=== PATIENT | male | born 1975 | race Caucasian/White ===

== ENCOUNTER 2018-04-09 19:35 | Emergency (ER) | payer BC ==
[~2018-04-09] VITALS: Ht 165.1 cm; Wt 83.9 kg
[2018-04-09] MEDS ORDERED: SUDAFED 12-HOU120 MG PO (19:43)
[2018-04-09] MEDS ORDERED: ZYRTEC10 MG PO (19:43)
[2018-04-09] MEDS ORDERED: PERCOCET 5-3251 EACH PO (21:44)
[2018-04-09] MEDS ORDERED: ZOFRAN ODT4 MG PO (21:44)
[2018-04-09] MEDS ORDERED: FLOMAX0.4 MG PO (21:44)
== END 2018-04-09 22:19 | disposition home or self-care (01) ==
LOC: ED 19:35
DX: N13.2 Hydronephrosis with renal and ureteral calculous obstruction (principal)
CPT/HCPCS: 74177; 80053; 81001; 83690; 85025; 96361; 96374; 96375; 96376; 99284; J1885; J2270; J2405; J7030; Q9967

== ENCOUNTER 2019-05-22 19:53 | Emergency (ER) | payer BC ==
[~2019-05-22] VITALS: Ht 165.1 cm; Wt 79.4 kg
[~2019-05-22 19:53] MED LIST: FLOMAX0.4 MG PO; PERCOCET 5-3251 EACH PO; SUDAFED 12-HOU120 MG PO; ZOFRAN ODT4 MG PO; ZYRTEC10 MG PO
[2019-05-22] MEDS ORDERED: ALLEGRA ALLERGY60 MG PO (20:30)
== END 2019-05-23 01:36 | disposition short-term general hospital (02) ==
LOC: ED 19:53
DX: S42.201A Unspecified fracture of upper end of right humerus, initial encounter for closed fracture (principal); Y04.0XXA Assault by unarmed brawl or fight, initial encounter
CPT/HCPCS: 71101; 73030; 96361; 96374; 96375; 96376; 99284-25; J1170; J2405; J7030

== ENCOUNTER 2021-04-02 12:10 | Inpatient (IN) | payer OTHER ==
[~2021-04-02] VITALS: Ht 165.1 cm; Wt 68.2 kg
[~2021-04-02 12:10] MED LIST changes: +ALLEGRA ALLERGY60 MG PO
--- NOTE | 2021-04-02 16:27 | EKG ---
[facility] [address] [facility] [place], [place] [address] Signed Sinus tachycardia Otherwise normal ECG No previous ECGs available Confirmed by DAMIAN AMBRIZ MD ([id number]) on 04/02/2021 4:27:16 PM Electronically Signed By: DAMIAN AMBRIZ MD 04/02/21 1627 PATIENT NAME: CARLOS MCALLISTER Electrocardiogram DATE OF : 77 PHYSICIAN: DAMIAN AMBRIZ MD REPORT #: [id number] REPORT IS CONFIDENTIAL AND NOT TO BE RELEASED WITHOUT AUTHORIZATION
--- NOTE | 2021-04-02 18:56 | NUR ---
PT ARRIVED AT 1755 AND WAS BROUGHT VIA WHEELCHAIR BY JAKI NORTON. PT ALERT AND ORIENTED, BELONGINGS BROUGHT BY WHO IS AT THE PT'S SIDE. PT ABLE TO STAND UP AND GET INTO BED WITHOUT DIFFICULTY. VITALS TAKEN AT THIS TIME, PT ASSESSED. SCHEDULED MEDICATIONS ADMINISTERED AT THIS TIME (SEE SEP). PT REPORTS NO PAIN AT THIS TIME AND DENIES SOB WHEN ASKED. PT NOW RESTING IN THE BED, WATER PROVIDED, IVF INFUSING ORDERED. PT REPORTS NO FURTHER NEEDS WHEN ASKED, WILL CONTINUE PLAN OF CARE. CALL LIGHT IN REACH, BED IN LOWEST POSITION, IN ROOM AT THE BEDSIDE.
--- NOTE | 2021-04-02 19:27 | NUR ---
Report recieved, care of patient assumed at this time.
--- NOTE | 2021-04-02 19:51 | NUR ---
in room for assessment and medication administration. pt ambulated to bathroom with on eperson assist required. heart rate up to 110 wih exertion. Discussed ETOH withdrawal signs and symptoms with pt. all questions answered. call light within reach. Will continue to monitor.
--- NOTE | 2021-04-02 22:03 | NUR ---
responded to pt call light. pt pulled out iv while sleeping. states he woke up unaware of his surrounding. New IV inserted. Well tolerated by PT. . pt remains steady on his feet and states he is having generalized pain.
--- NOTE | 2021-04-02 22:47 | NUR ---
pt given prn oral valium (see emar). blood drawn and sent to lab.
--- NOTE | 2021-04-03 00:15 | NUR ---
new order for IV fluids recieved and now infusing. PT resting with eyes closed, breathing even and unlabored. spo2= 94% on room air. RR= 20. Assessment completed. call light within reach and bed alarm in place. No further needs at this time.
--- NOTE | 2021-04-03 04:12 | NUR ---
PT RESTING. BREATHING EVEN AND UNLABORED. CALL LIGHT WITHIN REACH. BED ALARM IN PLACE. NO ASSESSED NEEDS AT THIS TIME. WILL CONTINUE TO MONITOR.
--- NOTE | 2021-04-03 06:08 | NUR ---
pt ambulated to bathroom, steady on feet. States the valium made him groggy. given fresh water. call light within reach. denies further needs at this time.
--- NOTE | 2021-04-03 07:47 | NUR ---
REPORT RECIEVED FROM NIGHTSHIFT RN, WILL CONTINUE PLAN OF CARE.
--- NOTE | 2021-04-03 08:58 | NUR ---
THIS RN IN TO ASSESS PT AND ADMINISTER SCHEDULED MEDICATION. PT SITTING UP IN BED ALERT AND ORIENTED X4. PT IS CALM, FOLLOWING INSTRUCTIONS, NO SWEATING OR TREMORS NOTED. CIWA OF 0. IVF INFUSING ORDERED AT THIS TIME. VITALS TAKEN, PT ASSESSED, SCHEDULED MEDICATIONS ADMINISTERED (SEE MAR). PT THEN UP TO THE BATHROOM TO VOID, NO TACHYCARDIA NOTED, PT SLOW BUT STEADY ON FEET. PT ABLE TO HAVE A BM AND VOID AND WALK BACK TO THE BED WITHOUT DIFFICULTY. PT PLACED BACK ON IVF, BREAKFAST ORDERED AT THIS TIME, NOW IN ROOM. IVF COMPLETED WHILE IN THE ROOM, PT NOW SALINE LOCKED. PT REPORTS NO FURTHER NEEDS AT THIS TIME WHEN ASKED AND IS NOW RESTING IN BED, CALL LIGHT IN REACH, BED IN LOWEST POSITION, PARTNER IN ROOM AT BEDSIDE. WILL CONTINUE PLAN OF CARE.
--- NOTE | 2021-04-03 09:50 | NUR ---
THIS RN IN TO BRING PT HIS BREAKFAST ORDER. PT LAYING IN BED ALERT AND ORIENTED, PARTNER AT THE BEDSIDE. PT REPORTS NO FURTHER NEEDS AT THIS TIME AND IS NOW SITTING UP IN BED EATING BREAKFAST. WILL CONTINUE PLAN OF CARE. CALL LIGHT IN REACH, BED IN LOWEST POSITION.
--- NOTE | 2021-04-03 11:23 | NUR ---
PAIENT FINISHED WITH BREAKFAST AND UP TO BR FOR BM. THIS LAST MARKER AMBULATED MARIE AND MCCALL TO ROOM WITH PATIENT, PATIENT TOLERATED WELL. IN ROOM. CALL LIGHT IN REACH, NO THER NEEDS AT THIS TIME
[2021-04-03] MEDS ORDERED: DIAZEPAM5 MG PO (11:37)
[2021-04-03] MEDS ORDERED: OMEPRAZOLE20 MG PO (11:37)
[2021-04-03] MEDS ORDERED: ONDANSETRON ODT4 MG PO (11:38)
[2021-04-03] MEDS ORDERED: SUCRALFATE1 GM PO (11:39)
--- NOTE | 2021-04-03 12:13 | NUR ---
THIS RN IN TO CHECK ON PT, PT LAYING IN BED AT THIS TIME ALERT AND ORIENTED WATCHING TV. REPORTS NO NEEDS AT THIS TIME WHEN ASKED, WILL CONTINUE PLAN OF CARE. CALL LIGHT IN REACH, BED IN LOWEST POSITION.
--- NOTE | 2021-04-03 12:25 | NUR ---
THIS RN IN TO CHECK ON PT. PT INFORMED ON PLANS FOR DISCHARGE AT THIS TIME. PT REPORTS NO FURTHER NEEDS AT THIS TIME AND IS RESTING IN BED ALERT AND ORIENTED. AT BEDSIDE, BED IN LOWEST POSITION, CALL LIGHT IN REACH. WILL CONTINUE PLAN OF CARE.
--- NOTE | 2021-04-03 13:25 | NUR ---
THIS RN IN TO GIVE PT DISCHARGE INSTRUCTIONS AFTER PHARMACIST. PT SITTING UP IN BED AWAKE AND ALERT AT THIS TIME. DISCHARGE INSTRUCTIONS GIVEN AND QUESTIONS ANSWERED AT THIS TIME. ADDRESSING MACHINE OPERATOR IN TO ASSIST WITH VITALS AND REMOVAL OF IV SITE. VALIUM ADMINISTERED AT THIS TIME SCHEDULED, PO DOSE GIVEN AT THIS TIME INSTEAD OF IV. PT REPORTS NO FURTHER NEEDS WHEN ASKED. PT TAKEN TO THE FRONT LOBBY VIA WHEELCHAIR ALONG WITH HIS AND BELONGINGS.
== END 2021-04-03 13:17 | disposition home or self-care (01) | DRG 683 ==
LOC: ED 12:10 → CCU 17:25
PROVIDERS: ADMIT Internal Medicine; ATTEND Internal Medicine
DX: N17.9 Acute kidney failure, unspecified (principal); F10.239 Alcohol dependence with withdrawal, unspecified; E87.1 Hypo-osmolality and hyponatremia; K29.20 Alcoholic gastritis without bleeding; E86.0 Dehydration; E83.52 Hypercalcemia; E87.6 Hypokalemia; K70.10 Alcoholic hepatitis without ascites; Z79.899 Other long term (current) drug therapy
CPT/HCPCS: 80048; 80053; 81001; 82570; 83036; 83690; 83735; 84300; 85025; 85610; 93005; 93010; 94640; 96365; 96375; 99285-25; C9113; C9803; G0480; J2060; J3360; J3411; J3480; J7030; U0003